=== PATIENT | male | born 1975 | race Caucasian/White ===

== ENCOUNTER 2016-11-06 13:55 | Emergency (ER) | payer BC, OTHER ==
--- NOTE | 2016-11-06 14:58 | ED ---
Syncope/Near Syncope - HPI Summary HPI Summary: 41 yr old male with complaint of near syncope. HPI: Onset today, six episodes of feeling lightheaded, dizzy, nauseated and felt like he would pass out. He denies having CP, SOB, palpitations. He went to [facility] but came here due to the wait time. He feels ok presently. He was recently diagnosed with hypertension. - History Of Current Complaint Chief Complaint: UCDizziness Time Seen by Provider: 11/06/16 14:44 - Allergies/Home Medications Allergies/Adverse Reactions: Allergies Allergy/AdvReac Type Severity Reaction Status Date / Time No Known Allergies Allergy Verified 11/06/16 14:20 Home Medications: Home Medications Acetaminophen [Acetaminophen Extra Stren] 1,000 mg PO Q6H PRN 11/06/16 [History Confirmed 11/06/16] PMH/Surg Hx/FS Hx/Imm Hx Cardiovascular History: Reports: Hx Hypertension - not being treated for it Respiratory History: Denies: Hx Asthma, Hx Chronic Obstructive Pulmonary Disease (COPD) Infectious Disease History: No Infectious Disease History: Denies: Traveled Outside the [place] in Last 30 Days - Family History Known Family History: Positive: Cardiac Disease - arrhythmias. - Social History Alcohol Use: Daily Alcohol Amount: 6-12 beers daily Substance Use Type: Reports: None Smoking Status (MU): Heavy Every Day Tobacco Smoker Type: Smokeless Tobacco Amount Used/How Often: 1 can per day Length of Time of Smoking/Using Tobacco: since age 27 Have You Smoked in the Last Year: Yes Review of Systems Constitutional: Negative Eyes: Negative ENT: Negative Cardiovascular: Other - dizziness Respiratory: Negative Gastrointestinal: Negative Skin: Negative All Other Systems Reviewed And Are Negative: Yes Physical Exam Triage Information Reviewed: Yes Vital Signs On Initial Exam: Initial Vitals Temp Pulse Resp BP Pulse Ox 98.3 F 78 16 153/100 100 11/06/16 14:17 11/06/16 14:17 11/06/16 14:17 11/06/16 14:17 11/06/16 14:17 Vital Signs Reviewed: Yes Appearance: Positive: Well-Appearing Skin: Positive: Warm, Skin Color Reflects Adequate Perfusion, Other - face is flushed Head/Face: Positive: Normal Head/Face Inspection - face red Eyes: Positive: EOMI, MINDI Respiratory/Lung Sounds: Positive: Clear to Auscultation, Breath Sounds Present Cardiovascular: Positive: Normal, RRR Abdomen Description: Positive: Nontender Musculoskeletal: Positive: Normal, Strength/ROM Intact Neurological: Positive: Normal, Sensory/Motor Intact, Alert, Oriented to Person Place, Time, CN Intact II-III Psychiatric: Positive: Normal - Britni Coma Scale Best Eye Response: 4 - Spontaneous Best Motor Response: 6 - Obeys Commands Best Verbal Response: 5 - Oriented Diagnostics - Vital Signs Vital Signs Temp Pulse Resp BP Pulse Ox 11/06/16 14:17 98.3 F 78 16 153/100 100 - Laboratory Lab Statement: Any lab studies that have been ordered have been reviewed, and results considered in the medical decision making process. - EKG 11/06/2016 at 228pm Cardiac Rate: NL Ectopy: None Course/Dx Course Of Treatment: 41 yr old male who requests to go to [facility]. He refused to go by ambulance despite our recommendation. Risk of , disability, stroke heart attack discussed. He signed out AMA. [facility] notified; Kevin BLANC took call and is expecting the patient; though he signed out AMA. - Diagnoses Provider Diagnoses: Near syncope - Physician Notifications Discussed Care Of Patient With: JAYASHREE Brown at [facility]. Discharge - Discharge Plan Condition: Good Disposition: AGAINST MEDICAL ADVICE
[2016-11-06 15:12] VITALS: BP 194/116
== END 2016-11-06 14:50 | disposition left against medical advice (07) ==
LOC: UCCORT 13:55
DX: R55 Syncope and collapse (principal); I10 Essential (primary) hypertension; F17.210 Nicotine dependence, cigarettes, uncomplicated
CPT/HCPCS: 93005; 99212; G0463

== ENCOUNTER 2018-12-26 10:20 | Emergency (ER) | payer OTHER ==
[2018-12-26 10:35] VITALS: BP 158/100
--- NOTE | 2018-12-26 10:57 | UC ---
Lower Extremity/Ankle HPI - HPI Summary HPI Summary: 43 yo male with the onset of symetrical joint pains x 3 weeks gradual onset with worsening pain ankles swell pain worse on first arising no fever no rash hx HTN - History of Current Complaint Chief Complaint: UCLowerExtremity Stated Complaint: BILATERAL KNEE AND ANKLE PAIN Time Seen by Provider: 12/26/18 10:33 Hx Obtained From: Patient Onset/Duration: Gradual Onset, Lasting Weeks Severity Initially: Mild Severity Currently: Mild Pain Intensity: 4 - severe in AMs first arising Pain Scale Used: 0-10 Numeric Aggravating Factor(s): Standing Alleviating Factor(s): OTC Meds Able to Bear Weight: Yes - Allergies/Home Medications Allergies/Adverse Reactions: Allergies Allergy/AdvReac Type Severity Reaction Status Date / Time lisinopril Allergy Swelling Verified 12/26/18 10:30 Of Face,Lips,& Throat Home Medications: Home Medications Amlodipine Besylate [Norvasc] 1 tab PO DAILY 12/26/18 [History Confirmed ] PMH/Surg Hx/FS Hx/Imm Hx Previously Healthy: Yes Cardiovascular History: Hypertension - Surgical History Surgical History: None - Family History Known Family History: Positive: Cardiac Disease - arrhythmias. , Hypertension, Other - SIB WITH LUPUS, MOM with "hand arthritis" - Social History Alcohol Use: Daily Alcohol Amount: 6-8 beers daily Substance Use Type: None Smoking Status (MU): Heavy Every Day Tobacco Smoker Type: Smokeless Tobacco Amount Used/How Often: 1 can per day Length of Time of Smoking/Using Tobacco: since age 27 Have You Smoked in the Last Year: No Review of Systems All Other Systems Reviewed And Are Negative: Yes Constitutional: Positive: Negative Skin: Positive: Negative Eyes: Positive: Negative ENT: Positive: Negative Respiratory: Positive: Negative Cardiovascular: Positive: Negative Gastrointestinal: Positive: Negative Genitourinary: Positive: Negative Motor: Positive: Negative Neurovascular: Positive: Negative Musculoskeletal: Positive: Arthralgia Neurological: Positive: Negative Psychological: Positive: Negative Physical Exam Triage Information Reviewed: Yes Appearance: Well-Appearing, No Pain Distress, Well-Nourished Vital Signs: Initial Vital Signs Temp 98.2 F 12/26/18 10:31 Pulse 78 12/26/18 10:31 Resp 16 12/26/18 10:31 BP 158/100 05/25/19 10:31 Pulse Ox 98 12/26/18 10:31 Vital Signs Reviewed: Yes Eyes: Positive: Conjunctiva Clear ENT: Positive: Hearing grossly normal. Negative: Nasal congestion, Nasal drainage, Trismus, Muffled voice, Dental tenderness Dental: Negative: Abscess @ Neck: Positive: Supple, Nontender, No Lymphadenopathy Respiratory: Positive: Lungs clear, Normal breath sounds, No respiratory distress, No accessory muscle use Cardiovascular: Positive: RRR, No Murmur Abdomen Description: Positive: Nontender, No Organomegaly, Soft. Negative: CVA Tenderness (R), CVA Tenderness (L) Bowel Sounds: Positive: Present Musculoskeletal: Positive: ROM Intact, Other: - ROM wrists, hips, knees full, ankle ROM full but painful, ankles slightly swollen and warm Neurological: Positive: Alert Psychological Exam: Normal Skin Exam: Normal Lower Extremity Course/Dx - Differential Dx/Diagnosis Provider Diagnosis: Polyarthralgia Discharge - Sign-Out/Discharge Documenting (check all that apply): Patient Departure All imaging exams completed and their final reports reviewed: No Studies - Discharge Plan Condition: Stable Disposition: HOME Patient Education Materials: Arthralgia (ED) Referrals: Maggie Burroughs MD [Primary Care Provider] - As Soon As Possible Additional Instructions: aleve 2 pills twice daily with food multiple blood tests pending - Billing Disposition and Condition Condition: STABLE Disposition: Home
[2018-12-26 14:42] LABS: ABS Eosinophils 0.2 10^3/ul (0-0.6); ABS Lymphocytes 1.3 10^3/ul (1.0-4.8); ABS Monocytes 0.7 10^3/ul (0-0.8); ABS Neutrophils 4.1 10^3/ul (1.5-7.7); Eosinophil % 3.7 %; Hematocrit 43 % (42-52); Hemoglobin 14.5 g/dL (14.0-18.0); Mean Corpuscular HGB Conc 34 g/dL (31-36); Mean Corpuscular Hemoglobin 31 pg (27-31); Mean Corpuscular Volume 91 fL (80-94); Mean Platelet Volume 7.2 fL (7.4-10.4); Nucleated Red Blood Cells % 0.1; Platelet Count 314 10^3/uL (150-450); Red Blood Count 4.73 10^6 /uL (4.18-5.48); Red Cell Distribution Width 13 % (10.5-15); White Blood Count 6.4 10^3/uL (3.5-10.8)
[2018-12-26 14:49] LABS: Albumin 4.3 g/dL (3.2-5.2); Anion Gap 9 mmol/L (2-11); CO2 Carbon Dioxide 25 mmol/L (22-32); Calcium 9.3 mg/dL (8.6-10.3); Chloride 105 mmol/L (101-111); Potassium 4.6 mmol/L (3.5-5.0); Sodium 139 mmol/L (135-145)
[2018-12-26 14:55] LABS: ALT 16 U/L (7-52); AST 18 U/L (13-39); Albumin/Globulin Ratio 1.4 (1-3); Alkaline Phosphatase 55 U/L (34-104); BUN/Creatinine Ratio 18.4 (8-20); Blood Urea Nitrogen 16 mg/dL (6-24); C Reactive Protein 55.76 mg/L (<8.01); EGFR Non-African American 96.7 (>60); Glucose 87 mg/dL (70-100); Rheumatoid Factor < 10 IU/mL (<15); Total Protein 7.3 g/dL (6.4-8.9)
== END 2018-12-26 11:06 | disposition home or self-care (01) ==
LOC: UCCORT 10:20
DX: M25.562 Pain in left knee (principal); M25.561 Pain in right knee; M25.571 Pain in right ankle and joints of right foot; M25.572 Pain in left ankle and joints of left foot; I10 Essential (primary) hypertension; F17.210 Nicotine dependence, cigarettes, uncomplicated; Z88.8 Allergy status to other drugs, medicaments and biological substances; Z79.899 Other long term (current) drug therapy
CPT/HCPCS: 36415; 80053; 85025; 86038; 86140; 86431; 86618; 99211; G0463